=== PATIENT | female | born 1985 | race American Indian/Alaskan Native ===

== ENCOUNTER 2016-12-13 01:30 | Emergency (ER) | payer OTHER ==
--- NOTE | 2016-12-13 07:31 | Emergency Department Report ---
Earache (Pediatric) - HPI Chief Complaint: Earache Stated Complaint: RT EAR PAIN Time Seen by Provider: 12/13/16 07:17 Location: Bilateral Severity: Moderate Symptoms: No URI, No Sore Throat, No Trauma to EAC, No History of Moisture in Ear, No Fever, No Vomiting, No Cough, No Shortness of Breath Other History: 31-year-old female past medical history none presents with complaint of 3 days of right-sided earache. States that there is slight serous drainage from the ear. Denies fever chills. Patient is awake alert and oriented 3, states she has slightly muffled hearing but overall hearing is intact. States that her right ear aches. Denies any recent introduction of water into the ear. States she was trying to clean it out with Q-tips with minimal relief. ED Review of Systems ROS: Stated complaint: RT EAR PAIN Other details as noted in HPI Constitutional: denies: chills, fever Eyes: denies: eye pain, eye discharge, vision change ENT: ear pain. denies: throat pain Respiratory: denies: cough, shortness of breath, wheezing Cardiovascular: denies: chest pain, palpitations Endocrine: no symptoms reported Gastrointestinal: denies: abdominal pain, nausea, diarrhea Genitourinary: denies: urgency, dysuria, discharge Musculoskeletal: denies: back pain, joint swelling, arthralgia Skin: denies: rash, lesions Neurological: denies: headache, weakness, paresthesias Psychiatric: denies: anxiety, depression Hematological/Lymphatic: denies: easy bleeding, easy bruising Pediatric Past Medical History - Surgeries & Procedures Additional Surgical History: . right hip Peds Earache exam - Exam General: Vital signs noted. No distress. Alert and acting appropriately. HEENT: No Pharyngeal Erythema, No Pharyngeal Exudates, No Moist Mucous Membranes , No Rhinorrhea, No Conjuctival Injection, No Frontal Tenderness, No Maxillary Tenderness Ear: Right TM Bulge (TM partially visible, injected), Right EAC Pain, Right EAC Discharge, Right Cerumen Impaction, Neither TM Erythema Peds Neck exam: Adenopathy: No, Supple: No Peds Lung exam: Good Air Exchange: Yes, Wheezes: No, Stridor: No, Cough: No, Nasal Flaring: No, Retractions: No, Use of Accessory Muscles: No Heart: No Regular, No Murmur Peds abdomen: Abdominal Tenderness: No, Peritoneal Signs: No, Normal Bowel Sounds: No, Distention: No Peds Skin Exam: Rash: No, Eczema: No Neurologic: Alert and oriented, no deficits. Musculoskeletal: Unremarkable. ED Course Vital Signs 12/13/16 01:35 Temperature 97.8 F Pulse Rate 76 Respiratory 18 Rate Blood Pressure 138/95 O2 Sat by Pulse 100 Oximetry ED Medical Decision Making - Medical Decision Making A/P: Right sided otitis media 1-as patient has external canal injection and evidence of TM injection will give both oral and topical treatments to right ear 2- naproxen when necessary 3-Debrox solution left ear 4- patient provided referral information for ENT Critical care attestation.: If time is entered above; I have spent that time in minutes in the direct care of this critically ill patient, excluding procedure time. ED Disposition Clinical Impression: Impacted cerumen of both ears Otitis media Qualifiers: Otitis media type: suppurative Chronicity: acute Laterality: right Recurrence: not specified as recurrent Spontaneous tympanic membrane rupture: without spontaneous rupture Qualified Code(s): H66.001 - Acute suppurative otitis media without spontaneous rupture of ear drum, right ear Otitis externa Qualifiers: Otitis externa type: noninfectious Noninfectious otitis externa type: other type Chronicity: acute Laterality: right Qualified Code(s): H60.591 - Other noninfective acute otitis externa, right ear Disposition: -01 TO HOME OR SELFCARE Is pt being admited?: No Does the pt Need Aspirin: No Condition: Stable Instructions: Otitis Media (ED), Otitis Externa (ED), Cerumen Impaction (ED) Prescriptions: Amoxicillin/K Clav Tab [Augmentin 875 mg] 1 tab PO Q12HR #14 tab Naproxen [Naprosyn TAB] 500 mg PO BID PRN #25 tablet PRN Reason: Pain Neomy/Polymyx B/Hc (Otic) Soln [Cortisporin (Otic) Soln] 4 drops OTIC TID #1 bottle Referrals: PRIMARY CAREMD [Primary Care Provider] - 3-5 Days [facility] [Provider Group] - [facility]] - 3-5 Days REE LIU MD [Staff Physician] - 3-5 Days Forms: Work/School Release Form(ED) Time of Disposition: 07:34
[2016-12-13 07:48] VITALS: BP 128/87
== END 2016-12-13 07:47 | disposition home or self-care (01) ==
LOC: ED 01:30
DX: H61.23 Impacted cerumen, bilateral (principal); H66.001 Acute suppurative otitis media without spontaneous rupture of ear drum, right ear; H60.591 Other noninfective acute otitis externa, right ear
CPT/HCPCS: 99282